=== PATIENT | male | born 1970 | race Caucasian/White ===

== ENCOUNTER 2021-12-13 14:55 | Emergency (ER) | payer OTHER, SELFPAY ==
[2021-12-13 15:29] VITALS: BP 164/90; PULSE 79; RESP 18; TEMP 36.7; O2SAT 98; BMI 35.9
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
== END 2021-12-13 16:35 | disposition home or self-care (01) ==
PROVIDERS: Emergency Provider Nurse Practitioner Critical Care Medicine
DX: S13.4XXA Sprain of ligaments of cervical spine, initial encounter (principal); S16.1XXA Strain of muscle, fascia and tendon at neck level, initial encounter; V89.2XXA Person injured in unspecified motor-vehicle accident, traffic, initial encounter
CPT/HCPCS: 99281

== ENCOUNTER 2024-03-07 14:08 | Emergency (ER) | payer OTHER, SELFPAY ==
[2024-03-07 14:16] VITALS: BP 159/88; PULSE 90; RESP 16; TEMP 36.8; O2SAT 99; BMI 32.5
--- NOTE | 2024-03-07 14:21 | DI.RAD.S_ITS ---
PROCEDURE: XR FOOT RT MIN 3V INDICATIONS: fall/pain TECHNIQUE: 3 views of the foot were acquired. COMPARISON: None. FINDINGS: Bones: No fractures or dislocations. No suspicious bony lesions. Soft tissues: No tibiotalar joint effusion. Achilles tendon appears normal. IMPRESSION: No acute bony abnormality. Dictated by: Blake Mitchell M.D. on 03/07/2024 at 15:01 Approved by: Blake Mitchell M.D. on 03/07/2024 at 15:02
--- NOTE | 2024-03-07 14:21 | DI.RAD.S_ITS ---
PROCEDURE: XR ANKLE RT MIN 3V INDICATIONS: fall/pain TECHNIQUE: 3 views of the ankle were acquired. COMPARISON: None. FINDINGS: Bones: No fractures or dislocations. Ankle mortise is normally aligned. No suspicious bony lesions. Soft tissues: No tibiotalar joint effusion. Achilles tendon appears normal. IMPRESSION: No acute bony abnormality or significant effusion. Dictated by: Blake Mitchell M.D. on 03/07/2024 at 15:00 Approved by: Blake Mitchell M.D. on 03/07/2024 at 15:01
[2024-03-07 15:36] VITALS: PULSE 76
--- NOTE | 2024-03-07 15:39 | ED_ITS ---
HPI - Extremity Injury (Lower) <Jaswant Bartlett PA-C - Last Filed: 03/07/24 16:03> General Chief Complaint: Extremity Injury, Lower Stated Complaint: r foot injury Time Seen by Provider: 03/07/24 14:24 Source: patient Mode of arrival: Ambulatory History of Present Illness HPI Narrative: 53-year-old male presents to the ED status post a right foot and ankle injury sustained just prior to arrival. Patient states he was coming down a ladder, when his right foot got stuck, causing his injury. No head strike, LOC. no other injuries. Patient complains of pain to the medial aspect of his right arch and around the ankle. No numbness, tingling, weakness. Patient is able to bear weight and walk. Related Data Allergies Allergy/AdvReac Type Severity Reaction Status Date / Time No Known Drug Allergies Allergy Verified 12/13/21 15:38 Review of Systems <Jaswant Bartlett PA-C - Last Filed: 03/07/24 16:03> Constitutional Constitutional: Denies chills, Denies fatigue, Denies fever(s), Denies frequent falls, Denies lethargy and Denies weakness Eyes Eyes: Denies change in vision, Denies eye discharge, Denies irritation and Denies loss of vision ENT Ears, Nose, Mouth, and Throat: Denies change in voice, Denies dizziness, Denies neck pain, Denies sore throat and Denies throat swelling Cardiovascular Cardiovascular: Denies chest pain, Denies irregular heart rhythm, Denies lightheadedness, Denies palpitations, Denies dyspnea, Denies dyspnea on exertion and Denies orthopnea Respiratory Respiratory: Denies cough, Denies dyspnea, Denies dyspnea on exertion and Denies wheezing Gastrointestinal Gastrointestinal: Denies abdominal pain, Denies change in bowel habits, Denies diarrhea, Denies nausea and Denies vomiting Musculoskeletal Musculoskeletal: Denies neck pain and Denies numbness Comments: Right foot and ankle pain Integumentary/Breasts Skin/Breast: Denies pruritus, Denies erythema, Denies rash and Denies wounds Neurologic Neurologic: Denies behavioral changes, Denies confusion, Denies dizziness, Denies frequent falls, Denies loss of vision, Denies numbness and Denies weakness Psychiatric Psychiatric: Denies anxiety, Denies behavioral changes, Denies confusion, Denies depression, Denies homicidal ideation and Denies suicidal ideation Endocrine Endocrine: Denies fatigue, Denies flushing and Denies palpitations Hematologic/Lymphatic Hematologic/Lymphatic: Denies easy bruising Allergic/Immunologic Allergic/Immunologic: Denies urticaria, Denies throat swelling and Denies wheezing Patient History <Jaswant Bartlett PA-C - Last Filed: 03/07/24 16:03> Social History Smoking Status: Former smoker Smoking Status: Former smoker tobacco type: cigarettes alcohol intake frequency: 0-2 drinks per day Exam <Jaswant Bartlett PA-C - Last Filed: 03/07/24 16:03> Narrative Exam Narrative: Const General:?cooperative, healthy appearing and comfortable HENKY Head:?normal to inspection Ears:?hearing grossly normal bilaterally Nose:?external nose normal Face and sinus:?normal facial exam and sinuses nontender Mouth:?oral mucosae normal Throat:?posterior oropharynx normal Eyes General:?appearance normal, both eyes and all related structures Neck Neck:?normal visual inspection and no lymphadenopathy noted Resp Effort & Inspection:?normal respiratory effort Auscultation:?clear to auscultation bilaterally Cardio Rate:?regular rate Rhythm:?regular rhythm Musculoskeletal There is some tenderness to palpation around the right ankle, arch of the foot. No bruising, swelling. There is full range of motion. Strength and sensation is intact. Patient is neurovascularly intact. Neuro General:?patient alert, patient awake and patient oriented x3 Initial Vital Signs Initial Vital Signs: Vital Signs Temperature 98.3 F 03/07/24 14:16 Pulse Rate 90 03/07/24 14:16 Respiratory Rate 16 03/07/24 14:16 Blood Pressure 159/88 H 03/07/24 14:16 Pulse Oximetry 99 03/07/24 14:16 Oxygen Delivery Method Room Air 03/07/24 14:16 <Chaim Murillo DO - Last Filed: 03/07/24 16:22> Initial Vital Signs Initial Vital Signs: Vital Signs Temperature 98.3 F 03/07/24 14:16 Pulse Rate 90 03/07/24 14:16 Respiratory Rate 16 03/07/24 14:16 Blood Pressure 159/88 H 03/07/24 14:16 Pulse Oximetry 99 03/07/24 14:16 Oxygen Delivery Method Room Air 03/07/24 14:16 Course <Jaswant Bartlett PA-C - Last Filed: 03/07/24 16:03> Orders Ordered: ED Orders 03/07/24 14:21 XR ankle RT min 3V Stat XR foot RT min 3V Stat Vital Signs Vital signs: Vital Signs - 8 hr 03/07/24 14:16 03/07/24 15:36 Temperature 98.3 F Pulse Rate 90 Pulse Rate [Right Dorsalis Pedis] 76 Respiratory Rate 16 Blood Pressure 159/88 H Pulse Oximetry 99 Oxygen Delivery Method Room Air <Chaim Murillo DO - Last Filed: 03/07/24 16:22> Orders Ordered: ED Orders 03/07/24 14:21 XR ankle RT min 3V Stat XR foot RT min 3V Stat Vital Signs Vital signs: Vital Signs - 8 hr 03/07/24 14:16 03/07/24 15:36 Temperature 98.3 F Pulse Rate 90 Pulse Rate [Right Dorsalis Pedis] 76 Respiratory Rate 16 Blood Pressure 159/88 H Pulse Oximetry 99 Oxygen Delivery Method Room Air MDM - Extremity Injury (Lower) <Jaswant Bartlett PA-C - Last Filed: 03/07/24 16:03> MDM Narrative Medical decision making narrative: 53-year-old male presents to the ED status post a right foot and ankle injury sustained just prior to arrival. Concern for fracture/dislocation versus musculoskeletal sprain/strain versus other. X-rays were obtained which were wi thout acute findings. Patient's symptoms most consistent with a foot and ankle sprain/strain. Eduardo wrap applied. Recommend RICE, ibuprofen, Tylenol. Recommend follow-up with PCP for re-evaluation of the foot and ankle as well as elevated blood pressure. Recommend patient keep a blood pressure log at home to take with him to his PCP appointment. ED return precautions discussed with patient. Patient verbalized understanding. Medical records reviewed: Yes Discharge Plan Departure Patient Disposition: Home Clinical Impression: Ankle sprain and strain Instructions: DI for Ankle Sprain Activity Restrictions/Additional Instructions: You were evaluated in the ED today for a foot and ankle injury. Your x-rays were normal. It appears that you have a musculoskeletal sprain/strain of your ankle and foot. You are being fitted with an Eduardo wrap for comfort and healing. You may rest, ice, elevate and continue using the Eduardo wraps for comfort. You may take 800 mg of ibuprofen every 8 hours with food for pain and inflammation. You may also take 1000 mg of Tylenol every 8 hours for pain. Please follow-up with your PCP as soon as possible for further evaluation of your foot and ankle as well as the elevated blood pressure. Return to the ED if you have worsening symptoms, numbness, tingling, weakness, chest pain, shortness of breath. Stand Alone Forms: Patient Portal/API/Survey ED Sign-out <Chaim Murillo, - Last Filed: 03/07/24 16:22> Cosign ED Attending Cosignature Attestation: Dr Murillo Co-Sign Statement: I was available for consultation during this patient's emergency department visit. This chart is signed by myself for administrative purposes only. I did not have direct contact with this patient during this visit. They were seen independently by the APC.
== END 2024-03-07 16:04 | disposition home or self-care (01) ==
PROVIDERS: Emergency Provider Student in an Organized Health Care Education/Training Program
DX: S93.401A Sprain of unspecified ligament of right ankle, initial encounter (principal); S96.911A Strain of unspecified muscle and tendon at ankle and foot level, right foot, initial encounter; W22.8XXA Striking against or struck by other objects, initial encounter
CPT/HCPCS: 73610; 73630; 99283